=== PATIENT | male | born 1990 ===

== ENCOUNTER 2018-03-24 22:45 | Emergency (ER) | payer OTHER ==
[~2018-03-24] VITALS: Ht 185.4 cm; Wt 102.1 kg
[~2018-03-24 22:45] MED LIST: VITAMENS
== END 2018-03-25 00:02 | disposition home or self-care (01) ==
LOC: ER 22:45
DX: S81.811A Laceration without foreign body, right lower leg, initial encounter (principal); W26.0XXA Contact with knife, initial encounter
CPT/HCPCS: 12001; 90471; 90714; 99283

== ENCOUNTER → 2021-12-20 | Outpatient (CLI) | payer OTHER | END | disposition home or self-care (01) | LOC: LAB SHORT 12:33 → LAB 12:33 | DX: J02.9 Acute pharyngitis, unspecified (principal) | CPT/HCPCS: 87081 ==